=== PATIENT | female | born 1970 | race Caucasian/White ===

== ENCOUNTER → 2017-05-24 | Day surgery (SDC) | payer MEDICAID ==
[~2017-05-24] MED LIST: ACETAMINOPHEN 500 MG TAB ONE; ACETAMINOPHEN 500 MG TAB PO ONE; DEXAMETHASONE 4 MG/ML VIAL IVP PRN; HYDROCODONE/APAP 5/325 TAB PO PRN; LIDOCAINE 1% 2 ML INJ ID PRN; LIDOCAINE 2% 100 MG/5 ML SYR ONE; LR 1,000 ML IV ONE; NALOXONE HCL 0.4 MG/ML INJ IVP PRN; ONDANSETRON 4 MG/2 ML VIAL IVP PRN; OXYCODONE/APAP 5/325 TAB PO PRN; PROPOFOL/EMULSION 500 MG/50 ML BOTTLE IV ONE; fentaNYL 100 MCG/2 ML INJ IVP PRN
--- NOTE | 2017-05-24 12:14 | PDHPUP ---
History & Physical Update H&P update statement: This history and physical update is based on an assessment of the patient which was completed after admission or registration (within 24 hours), but prior to the surgery/procedure. H&P changes: none
--- NOTE | 2017-05-24 12:21 | PDANEPAE ---
ANE History of Present Illness EGD, colonoscopy ANE Past Medical History - Cardiovascular History Hx Hypertension: No Hx Arrhythmias: No Hx Chest Pain: No Hx Coronary Artery / Peripheral Vascular Disease: No Hx CHF / Valvular Disease: No Hx Palpitations: No - Pulmonary History Hx COPD: No Hx Asthma/Reactive Airway Disease: No Hx Recent Upper Respiratory Infection: No Hx Oxygen in Use at Home: No Hx Sleep Apnea: No Sleep Apnea Screening Result - Last Documented: Negative - Neurologic History Hx Cerebrovascular Accident: No Hx Seizures: No Hx Dementia: No - Endocrine History Hx Diabetes: No - Renal History Hx Renal Disorders: No - Liver History Hx Hepatic Disorders: No - Neurological & Psychiatric Hx Hx Neurological and Psychiatric Disorders: No - Cancer History Hx Cancer: No - Congenital Disorder History Hx Congenital Disorders: No - GI History Hx Gastrointestinal Disorders: Yes Gastrointestinal History Comment: GERD - Chronic Pain History Chronic Pain: No - Surgical History Prior Surgeries: lap samantha ANE Review of Systems Review of systems is: negative Review of Systems: - Exercise capacity METS (RN): 3 METS ANE Patient History - Allergies Allergies/Adverse Reactions: Penicillins Allergy (Intermediate, Verified 05/22/17 17:52) Hives - Home Medications Home Medications: Aleve 220 MG (*) PRN 05/22/17 [Last Taken 05/23/17 15:00] Effexor Xr DAILY AT 8PM 05/22/17 [Last Taken 05/22/17 20:00] Flexeril 10 MG (*) PRN 05/22/17 [Last Taken 05/22/17 20:00] Mirtazapine DAILY AT 8PM 05/22/17 [Last Taken 05/22/17 20:00] traZODONE 100MG (*) PRN 05/22/17 [Last Taken 05/22/17 20:00] - NPO status NPO Since - Liquids (Date): 05/24/17 NPO Since - Liquids (Time): 10:00 NPO Since - Solids (Date): 05/23/17 NPO Since - Solids (Time): 09:00 - Anes Hx Anes Hx: no prior problems - Smoking Hx Smoking Status: Light smoker - Alcohol Use Alcohol Use: Sober - Family Anes Hx Family Anes Hx: none Family Hx Anesthesia Complications: none ANE Labs/Vital Signs - Vital Signs Blood Pressure: 113/83 Heart Rate: 116 Respiratory Rate: 16 O2 Sat (%): 93 Height: 157.48 cm Weight: 99.79 kg ANE Physical Exam - Airway Neck exam: FROM Mallampati Score: Class 2 Mouth exam: normal dental/mouth exam - Pulmonary Pulmonary: no respiratory distress - Cardiovascular Cardiovascular: regular rate and rhythym - ASA Status ASA Status: II ANE Anesthesia Plan Total IV Anesthesia: Yes
--- NOTE | 2017-05-24 13:11 | POSTOPPROG ---
Post Op Note Date of Operation: 05/24/17 Surgeon: Chiki Craft Anesthesiologist: Cole Anesthesia: Other (Specify) (IV general) Pre-op Diagnosis: iron def anemia Post-op Diagnosis: gastritis, duodeniits, small cecal and transvers 'polyps' removed with snar Indication: iron def anemia., gerd sx's Procedure: egd bx colon snare Findings: nml esoph, gastritis duodentis, small cecal polyps Inf/Abcess present in the surg proc area at time of surgery?: No EBL: Minimal (few ml) Total fluids administered: 300ml LR Complications: none immediate
--- NOTE | 2017-05-24 13:25 | GIREPORT ---
[facility] Surgical Services - Endoscopy Department Patient Name: Kathryn Walker Procedure Date: 05/24/2017 12:16 PM Patient Type: Outpatient Attending MD/ ER Physician: Kate Díaz Procedure: Colonoscopy Indications: Iron deficiency anemia Providers: Avinash Craft MD Referring MD: Clifford Gould MD Medicines: Sedation Required Anesthesia Staff Assistance Complications: No immediate complications. Estimated blood loss: Minimal. Description of Procedure: After obtaining informed consent, the scope was passed under direct vis ion. Throughout the procedure, the patient's blood pressure, pulse, and oxyg en saturations were monitored continuously. The Colonoscope with irrigatio n channel was introduced through the anus and advanced to the terminal il eum, with identification of the appendiceal orifice and IC valve. The colono scopy was performed without difficulty. The patient tolerated the procedure w ell. The quality of the bowel preparation was good. Findings: The digital rectal exam was normal. The terminal ileum appeared normal. A 6 mm polyp was found in the cecum. The polyp was sessile. The polyp w as removed with a cold snare. Resection and retrieval were complete. Estim ated blood loss was minimal. A 4 mm polyp was found in the distal transverse colon. The polyp was sessile. The polyp was removed with a cold snare. Resection and retriev al were complete. Estimated blood loss was minimal. The exam was otherwise without abnormality. Estimated Blood Loss: Estimated blood loss was minimal. Post Op Diagnosis: - The examined portion of the ileum was normal. - One 6 mm polyp in the cecum, removed with a cold snare. Resected and retrieved. - One 4 mm polyp in the distal transverse colon, removed with a cold sn are. Resected and retrieved. - The examination was otherwise normal. Recommendation: - Await pathology results. - My office will call with the pathology result with 5-7 days. If you h ave not heard from my office by 12-14, do not assume the pathology is olivia l, please call [phone] to get the pathology results. - If the pathology report reveals adenomatous tissue, then repeat the colonoscopy for surveillance in 5 years. - If the pathology report reveals no adenomatous tissue, then repeat th e colonoscopy for screening purposes in 10 years. - Patient has a contact number available for emergencies. The signs and symptoms of potential delayed complications were discussed with the pat ient. Return to normal activities tomorrow. Written discharge instructions we re provided to the patient. - Continue present medications. - See EGD for other recommendations - Discharge patient to home (ambulatory). - Return to primary care physician as previously scheduled. - Thank you for allowing me to help in your patient's care. Do not hesi bañuelos to call with any questions. Attending Participation: I personally performed the entire procedure. Venancio Da Silva M.D Avinash Craft MD 05/24/2017 1:25:01 PM This report has been signed electronicallyMathew MD Venancio Number of Addenda: 0 Note Initiated On: 05/24/2017 12:16 PM Total Procedure Duration Time 0 hours 14 minutes 24 seconds [email or web address]
--- NOTE | 2017-05-24 13:26 | GIREPORT ---
[facility] Surgical Services - Endoscopy Department Patient Name: Kathryn Walker Procedure Date: 05/24/2017 12:15 PM Patient Type: Outpatient Attending MD/ ER Physician: Kate Díaz Procedure: Upper GI endoscopy Indications: Iron deficiency anemia, Heartburn, Nausea with vomiting Providers: Avinash Craft MD Referring MD: Clifford Gould MD Medicines: Sedation Required Anesthesia Staff Assistance Complications: No immediate complications. Estimated blood loss: Minimal. Description of Procedure: After obtaining informed consent, the endoscope was passed under direct vision. Throughout the procedure, the patient's blood pressure, pulse, and oxygen saturations were monitored continuously. The Endoscope was intro duced through the mouth, and advanced to the third part of duodenum. The uppe r GI endoscopy was accomplished without difficulty. The patient tolerated th e procedure well. Findings: Diffuse mild erythema was found in the lower third of the esophagus. Biopsies were taken with a cold forceps for histology. Estimated blood loss was minimal. Scattered mild inflammation characterized by erosions, erythema, friabi lity and granularity was found in the gastric body and in the gastric antrum . Biopsies were taken with a cold forceps for histology. Estimated blood loss was minimal. Scattered mild mucosal variance was found in the entire duodenum. Biops ies were taken with a cold forceps for histology. Estimated blood loss was minimal. The exam was otherwise without abnormality. Estimated Blood Loss: Estimated blood loss was minimal. Post Op Diagnosis: - Erythema in the lower third of the esophagus. Biopsied. - Gastritis. Biopsied. - Mucosal variant in the duodenum. Biopsied. - The examination was otherwise normal. Recommendation: - Await pathology results. - My office will call with the pathology result with 5-7 days. If you h ave not heard from my office by 12-14, do not assume the pathology is olivia l, please call [phone] to get the pathology reults. - Use Protonix (pantoprazole) 40 mg PO daily. Take 30-60 minutes befoer breakfast. - Use Zantac (ranitidine) 300 mg PO at bedtime. - Follow an antireflux regimen. - Perform a colonoscopy today. - Return to GI clinic in 4 weeks. - Return to primary care physician as previously scheduled. - Thank you for allowing me to help in your patient's care. Do not hesi bañuelos to call with any questions. Attending Participation: I personally performed the entire procedure. Venancio Da Silva M.D Avinash Craft MD 05/24/2017 1:25:42 PM This report has been signed electronicallyMathew MD Venancio Number of Addenda: 0 Note Initiated On: 05/24/2017 12:15 PM [email or web address]
[2017-05-24 14:01] VITALS: PULSE 82; RESP 16; TEMP 98.1
--- NOTE | 2017-05-24 14:43 | POSTANESTH ---
Post Anesthetic Evaluation Cardiovascular Status: Normal, Stable, Similar to Pre-Op Cond Respiratory Status: Normal, Stable, Similar to Pre-op Cond. Level of Consciousness/Mental Status: Can Participate in Eval, Moderately Sleepy Pain Control: Adequate, Prn Tx Ordered Nausea/Vomiting Control: Adequate, Prn Tx Ordered Complications Possibly Related to Anesthesia: None Noted
[2017-05-24 15:41] VITALS: BP 83/35; O2SAT 99
== END ==
LOC: FSGY 10:20
PROVIDERS: ATTEND Internal Medicine Gastroenterology
PROC: 0DB68ZX Excision of Stomach, Via Natural or Artificial Opening Endoscopic, Diagnostic (ICD-10-PCS; principal; 2017-05-24 12:00)
PROC: 0DB98ZX Excision of Duodenum, Via Natural or Artificial Opening Endoscopic, Diagnostic (ICD-10-PCS; principal; 2017-05-24 12:00)
PROC: 0DB38ZX Excision of Lower Esophagus, Via Natural or Artificial Opening Endoscopic, Diagnostic (ICD-10-PCS; principal; 2017-05-24 12:00)
PROC: 0DBH8ZX Excision of Cecum, Via Natural or Artificial Opening Endoscopic, Diagnostic (ICD-10-PCS; principal; 2017-05-24 12:00)
PROC: 0DBL8ZX Excision of Transverse Colon, Via Natural or Artificial Opening Endoscopic, Diagnostic (ICD-10-PCS; principal; 2017-05-24 12:00)
DX: K29.90 Gastroduodenitis, unspecified, without bleeding (principal); K31.89 Other diseases of stomach and duodenum; K63.5 Polyp of colon; D50.9 Iron deficiency anemia, unspecified; K21.9 Gastro-esophageal reflux disease without esophagitis; R94.5 Abnormal results of liver function studies; F17.210 Nicotine dependence, cigarettes, uncomplicated; F10.21 Alcohol dependence, in remission; Z88.0 Allergy status to penicillin
CPT/HCPCS: J2001; J2704